=== PATIENT | male | born 1995 | race Caucasian/White ===

== ENCOUNTER 2022-09-06 16:54 | Emergency (ER) | payer SELFPAY ==
[2022-09-06 16:55] VITALS: BP 138/74; PULSE 69; RESP 16; TEMP 36.6; O2SAT 97; BMI 19.1
--- NOTE | 2022-09-06 17:59 | EDS_ITS ---
HPI History of Present Illness Chief Complaint: Cold Sx Informant: patient Onset/Context/Timing Onset: Weeks (3) Context: Gradual Onset Timing: Continuous and Waxes and wanes Quality: Lightheaded Location: Generalized Worsened by: Nothing Relieved by: Nothing Narrative Narrative: Patient presents with cough and congestion that has been getting worse over the past 3 weeks. Patient states she has been having some hemoptysis over the past 3 weeks. Patient states it has been waxing and waning. Patient states that over the last week he has been starting to feel more lightheaded and dizzy. Patient states he has had some nausea, vomiting, and diarrhea. Patient admits to some shortness of breath. Patient states he also has some pain in his chest with coughing. Patient states he is coughing up some yellow sputum as well as the hemoptysis. Patient also admits to headache and rhinorrhea. Patient admits to some subjective chills but denies any fevers. PFSH PFSH Medical History no medical history no medical history Home Medications sertraline 50 mg tablet 75 mg 09/06/22 [History Last Taken Unknown] Allergy/AdvReac Type Severity Reaction Status Date / Time Sulfa (Sulfonamide Allergy Angioedema Verified 09/06/22 16:57 Antibiotics) Surgical History (Updated 09/06/22 @ 18:[address] Tulio Norman DO) Hx of nasal septoplasty Hx of tonsillectomy Social History Smoking Status: Unknown if ever smoked ROS ROS ED Constitutional Constitutional ED: Reports chills and subjective; Denies fever(s) Eyes Eyes: Reports blurry vision; Denies diplopia ENT ENT ED: Reports rhinorrhea; Denies sore throat Cardiovascular Cardiovascular: Reports chest pain; Denies palpitations Respiratory/Chest Respiratory/Chest: Reports cough and dyspnea Gastrointestinal Gastrointestinal: Reports diarrhea, nausea and vomiting Genitourinary Genitourinary ED: Denies dysuria or hematuria Musculoskeletal Musculoskeletal: Reports back pain and neck pain Integumentary Denies abscess or rash Neurologic Neurologic: Reports headache(s); Denies weakness Allergic/Immunologic Allergic/Immunologic ED: Denies mouth swelling or urticaria EXAM Physical Exam Const Vital Signs: 09/06/22 16:55 09/06/22 17:29 09/06/22 17:53 Temperature 97.8 F Temperature Source Temporal Pulse Rate 69 Respiratory Rate 16 Respiratory Effort Normal Non-Labored Normal Non-Labored Respiratory Pattern Normal Blood Pressure 138/74 H Blood Pressure Mean 95 Pulse Ox 97 Oxygen Delivery Method Room Air Positive well nourished and well developed General Appearance ED: well developed and NAD HEENT Reports moist mucous membranes Neck supple and no JVD Resp normal respiratory effort and clear to auscultation bilaterally Cardio regular rate, regular rhythm and no murmurs GI normal to inspection, nondistended, normoactive bowel sounds and non-tender Palpation: soft Extremity normal to inspection General Extremety ED: Negative for edema or tenderness General Extremity: Negative for edema Neuro oriented x3, CN's II-XII intact bilaterally and no sensory deficits noted Sensorium / Orientation: alert Motor Exam: strength 5/5 throughout Psych mental status grossly normal Skin no rashes or lesions noted MDM MDM MDM Narrative Medical decision making narrative: Dear Merle includes pneumonia, COVID, influenza, viral bronchitis, viral gastroenteritis, electrolyte abnormality, dehydration, pulmonary embolism, and cardiac dysrhythmia. EKG will be obtained to assess for cardiac dysrhythmia and cardiac ischemia. CBC will be obtained to assess for leukocytosis and anemia. Basic metabolic profile will be obtained to assess for electrolyte abnormality and renal function. COVID-19 rapid antigen will be obtained to assess for COVID infection. Influenza A and influenza B antigens will be obtained to assess for influenza infection. Chest x-ray will be obtained to assess for pneumonia and pneumothorax. D-dimer will be obtained to assess for pulmonary embolism. Lab Data Lab results narrative: CBC was reviewed and was within normal limits. D-dimer was reviewed and was within normal limits. Basic metabolic profile was reviewed and was within normal limits. COVID-19 rapid antigen was reviewed and was negative. Influenza A and influenza B rapid antigens were reviewed and were negative. Labs: Laboratory Results - last 24 hr 09/06/22 09/06/22 09/06/22 18:18 18:18 18:18 WBC 8.5 RBC 5.17 Hgb 15.6 Hct 46.8 MCV 90.5 MCH 30.2 MCHC 33.3 RDW Std Deviation 41.9 RDW Coeff of Chasity 12.6 Plt Count 240 MPV 12.3 H Immature Gran % (Auto) 0.400 Neut % (Auto) 76.7 H Lymph % (Auto) 16.4 L [place] % (Auto) 5.1 Eos % (Auto) 0.9 Baso % (Auto) 0.5 Absolute Neuts (auto) 6.5 Absolute Lymphs (auto) 1.39 Nucleated RBC % 0 D-Dimer Quant (PE/DVT) < 0.27 L Sodium 140 Potassium 4.4 Chloride 106 Carbon Dioxide 26.0 Anion Gap 8 BUN 17 Creatinine 0.75 Estim Creat Clear Calc 124.91 Est GFR (MDRD) Af Amer 162 Est GFR (MDRD) Non-Af 134 BUN/Creatinine Ratio 22.6 H Glucose 111 H Calcium 9.6 Radiography Chest X-Ray - ED: 2 View, Read by ED Physician, Read by Radiologist, Normal and No Acute Disease Diagnostic Testing: Clinical Impression(s) from Imaging Studies Chest X-Ray 09/06/22 18:25 IMPRESSION: Normal x-ray examination of the chest. Electronically Signed: Anand Reina MD at 18:47 EST , PA and lateral chest x-ray was obtained. There are 2 views. On my independent interpretation, lung osullivan are clear. There is normal cardiac silhouette. Bony thorax is normal. There is no acute process noted. Radiologist also interpreted the x-ray and agrees. EKG Initial EKG: Attestation: I personally reviewed and interpreted this EKG as follows: Interpretation: Sinus Rhythm (65) and No Acute Injury Pattern Comments: EKG was obtained. On my independent interpretation, it showed a normal sinus rhythm with a rate of 65. MT interval, QRS interval, and QTc intervals were all normal. [place] was normal. There are no acute ST or T wave changes. Prior EKG tracings: not available for review Prior: No Prior Treatment and Re-Evaluation Narrative: Patient was given IV fluids. Patient is feeling better on reevaluation. Patient was advised of his findings. Patient was instructed to continue Tylenol and ibuprofen as needed for any aches or fevers. Patient was instructed to drink plenty of fluids. Patient was instructed to follow-up with his primary care physician in 5 to 7 days. Patient understood and was agreeable with the plan. All questions were answered. Discharge Plan Triage Chief Complaint: Cold Sx ED Provider: Tulio Norman Dx/Rx/DC Orders Clinical Impression: Viral upper respiratory tract infection, Cough Instructions: ED URI, Viral, No Abx (Adult) Prescriptions: No Action sertraline 50 mg tablet 75 mg Label Comments: Take 1 and 1/2 tablets by mouth once daily. Stand Alone Forms: ED Work / School Excuse Primary Care Provider: Kelsi Mchugh IUSS ACOUSTIC ANALYST Referrals: Kelsi Mchugh IUSS ACOUSTIC ANALYST, IUSS ACOUSTIC ANALYST-C [Primary Care Provider] - 5-7 Days Disposition Disposition: Home, Self Care
--- NOTE | 2022-09-06 18:05 | EKG12_ITS ---
Test Reason : DYSRHYTHMIA Blood Pressure : / mmHG Vent. Rate : 065 BPM Atrial Rate : 065 BPM P-R Int : 168 ms QRS Dur : 092 ms QT Int : 376 ms P-R-T Axes : 069 058 067 degrees QTc Int : 391 ms Normal sinus rhythm with sinus arrhythmia Normal ECG Confirmed by ADAM FUCHS, KARINA ([id number]), staff editor NICOLÁS LEE ([id number]) on 09/07/2022 9:06:14 AM Referred By: ALMAZ Confirmed By:KARINA MEDINA MD
--- NOTE | 2022-09-06 18:14 | NURSING ---
NO OLD EKGS
[2022-09-06 18:25] LABS: Absolute Lymphocyte Count 1.39 X10^3/uL (0.83-4.51); Absolute Neutrophil Count 6.5 X10^3/uL (2.0-7.7); Basophil# 0.04 X10^3/uL; Basophil% 0.5 % (0-1); Eosinophil# 0.08 X10^3/uL; Eosinophils% 0.9 % (0-5); Hematocrit 46.8 % (40-54); Hemoglobin 15.6 g/dL (13.0-16.5); Lymphocyte # 1.39 X10^3/ul (0.83-4.51); Lymphocyte % 16.4 % (19-41); Mean Corp Hgb Conc 33.3 g/dL (32-36); Mean Corpuscular Hgb 30.2 pg (27.0-32.0); Mean Corpuscular Volume 90.5 fL (80-94); Mean Platelet Vol. 12.3 fl (6.2-12.0); Monocyte# 0.43 X10^3/uL; Monocyte% 5.1 % (0-10); NRBC Flagged by Analyzer 0 % (0-5); Neutrophil # 6.51 X10^3/uL (2.7-7.7); Neutrophil % 76.7 % (47-70); Platelet Count 240 K/mm3 (150-450); RBC Distribution Width CV 12.6 % (11.6-14.6); RBC Distribution Width SD 41.9 fl (35.1-43.9); Red Blood Count 5.17 M/mm3 (4.6-6.2); White Blood Count 8.5 K/mm3 (4.4-11.0)
--- NOTE | 2022-09-06 18:25 | RAD_ITS ---
STUDY: X-RAY CHEST REASON FOR EXAM: Male, 27 years old. Cough TECHNIQUE: PA and lateral COMPARISON: None. FINDINGS: The lungs are clear and expanded. There is no demonstrated pleural abnormality. Normal size heart. Normal mediastinum and rossy. Normal visualized pulmonary arteries. Normal visualized aortic arch and descending thoracic aorta. Normal visualized thoracic spine. Normal visualized ribs, clavicles, and shoulders. There is no demonstrated abnormality of the visualized soft tissue structures of the upper abdomen. RAD/Chest PA and Lateral IMPRESSION: Normal x-ray examination of the chest. Electronically Signed: Anand Reina MD at 18:47 EST ,
[2022-09-06 18:38] LABS: Anion Gap 8 (5-15); BUN 17 mg/dL (7-18); BUN/Creat Ratio 22.6 RATIO (10-20); Calcium,Total 9.6 mg/dL (8.5-10.1); Chloride 106 mmol/L (98-107); Creatinine, Serum 0.75 mg/dL (0.70-1.30); EST Glomerular Filtration Rate 134 mL/min (>60); Est Glom Filt Rate - Afr Amer 162 mL/min (>60); Estimated Creatinine Clearance 124.91 ml/min; Glucose 111 mg/dL (74-106); Potassium 4.4 mmol/L (3.5-5.1); Sodium Level 140 mmol/L (136-145)
[2022-09-06] MEDS: 0.9% Normal Saline 1,000 ML 1000 ML IV (18:44)
[2022-09-06 18:46] LABS: D-Dimer Quantitative (DVT/PE) < 0.27 FEU/ug/m (0.27-0.49)
== END 2022-09-06 21:25 | disposition home or self-care (01) ==
PROVIDERS: Emergency Provider Emergency Medicine; PCP Nurse Practitioner Family; Visit Provider Emergency Medicine
DX: J06.9 Acute upper respiratory infection, unspecified (principal); R51.9 Headache, unspecified; Z20.822 Contact with and (suspected) exposure to COVID-19
CPT/HCPCS: 71046; 80048; 85025; 85379; 87428; 93005; 96360; 96361; 99284; J7030; A4216

== ENCOUNTER 2023-02-13 10:47 | Emergency (ER) | payer OTHER, SELFPAY ==
[2023-02-13 10:48] VITALS: BP 127/78; PULSE 51; RESP 22; TEMP 35.5; O2SAT 99
[2023-02-13 11:00] LABS: Absolute Lymphocyte Count 1.74 X10^3/uL (0.83-4.51); Absolute Neutrophil Count 8.2 X10^3/uL (2.0-7.7); Basophil# 0.05 X10^3/uL; Basophil% 0.5 % (0-1); Eosinophil# 0.17 X10^3/uL; Eosinophils% 1.6 % (0-5); Hematocrit 45.9 % (40-54); Hemoglobin 15.2 g/dL (13.0-16.5); Lymphocyte # 1.74 X10^3/ul (0.83-4.51); Lymphocyte % 16.2 % (19-41); Mean Corp Hgb Conc 33.1 g/dL (32-36); Mean Corpuscular Hgb 29.6 pg (27.0-32.0); Mean Corpuscular Volume 89.5 fL (80-94); Mean Platelet Vol. 12.3 fl (6.2-12.0); Monocyte# 0.55 X10^3/uL; Monocyte% 5.1 % (0-10); NRBC Flagged by Analyzer 0 % (0-5); Neutrophil # 8.19 X10^3/uL (2.7-7.7); Neutrophil % 76.2 % (47-70); Platelet Count 244 K/mm3 (150-450); RBC Distribution Width CV 12.4 % (11.6-14.6); RBC Distribution Width SD 40.6 fl (35.1-43.9); Red Blood Count 5.13 M/mm3 (4.6-6.2); White Blood Count 10.7 K/mm3 (4.4-11.0)
[2023-02-13 11:14] LABS: Mucous, Urine 0 SEEN /hpf (<or=2+); Squamous Epithelial Cells - UA 0 SEEN /hpf (0-5)
[2023-02-13 11:19] LABS: Color, Urine Yellow (Yellow); Glucose, Dipstick Normal (Normal); Ketone-Dipstick 5 mg/dl (Negative); Leukocyte Esterase-Dipstick 25 /ul (Negative); Nitrite-Dipstick Negative (Negative); Occult Blood-Urine 250 /ul (Negative); Protein-Dipstick 30 mg/dl (Negative); Urine Bilirubin Dipstick Negative (Negative); Urine Clarity Clear (Clear); Urine Urobilinogen 1 mg/dl (Normal)
[2023-02-13 11:23] LABS: ALB/GLOB Ratio 1.2 RATIO (0.9-2.4); AST(SGOT) 16 U/L (15-37); Alanine Aminotransfer ALT/SGPT 18 U/L (16-61); Albumin, Serum 4.1 g/dL (3.2-5.0); Alkaline Phosphatase 64 U/L (45-117); Anion Gap 2 (5-15); BUN 8 mg/dL (7-18); BUN/Creat Ratio 7.9 RATIO (10-20); Calcium,Total 9.1 mg/dL (8.5-10.1); Chloride 108 mmol/L (98-107); Creatinine, Serum 1.01 mg/dL (0.70-1.30); EST Glomerular Filtration Rate 95 mL/min (>60); Est Glom Filt Rate - Afr Amer 115 mL/min (>60); Globulin 3.3 g/dL (2.2-4.2); Glucose 148 mg/dL (74-106); Potassium 4.3 mmol/L (3.5-5.1); Protein, Total 7.4 g/dL (6.4-8.2); Sodium Level 139 mmol/L (136-145)
[2023-02-13 11:30] LABS: Bacteria 1+ /hpf (None Seen); Red Blood Cells-Urine > 100 SEEN /hpf (0-5); White Blood Cells 0-5 SEEN /hpf (0-5)
--- NOTE | 2023-02-13 12:08 | CT_ITS ---
STUDY: CT ABDOMEN AND PELVIS WITHOUT CONTRAST REASON FOR EXAM: Male, 27 years old. Right flank pain. Hematuria. RADIATION DOSAGE (If Supplied By Facility): CTDIvol = ( 6.15 ) mGy, DLP = ( 310.33 ) mGycm TECHNIQUE: Transaxial images were obtained from the dome of the diaphragm to the symphysis pubis without oral contrast, and without intravenous contrast. Sagittal and coronal images were reconstructed. Individualized dose optimization techniques were used for this CT. COMPARISON: None. FINDINGS: Tiny partially calcified granuloma seen in the posterior medial segment of the left lower lobe. The visualized portions of the heart are within normal limits. Normal liver. Normal gallbladder and extrahepatic biliary system. Normal spleen. Normal pancreas. Normal bilateral adrenal glands. Minimally dilated right ureter. Normal left kidney. Normal visualized stomach. Normal small intestine. Normal colon. The appendix is visualized and appears normal. Normal abdominal aorta. Normal inferior vena cava. Normal retroperitoneum. There is a 3.8 mm calculus at the base of the bladder in the midline posteriorly. This most likely represents a recently passed calculus. Normal abdominal wall. Normal osseous structures. CT/Abdomen/Pelvis without Cont IMPRESSION: A 3.8 mm calculus is seen at the base of the bladder in the midline posteriorly suggestive of recently passed right ureteral calculus. Electronically Signed: Rafael Ayoub MD at 12:37 EDT ,
[2023-02-13 13:26] VITALS: BMI 23.2
--- NOTE | 2023-02-13 13:27 | EDS_ITS ---
HPI History of Present Illness Chief Complaint: Flank Pain Narrative Narrative: 27-year-old male with right flank pain. Started 1 hour prior to arrival. Patient with dysuria. He states the pain radiates to the inguinal region. He has had nausea and vomiting. He has trouble finding position of comfort. No history of kidney stones. He states he was given something by the EMS and he feels better now and does not need anything for pain. [facility] Medical History Asthma Concentration deficit Drug abuse History of emotional problems PTSD (post-traumatic stress disorder) Home Medications guanfacine 1 mg tablet,extended release 24 hr 1 mg PO DAILY #30 tabs 01/03/23 [Rx Last Taken Unknown] lamotrigine 25 mg tablet See Rx Instructions PO .COMPLEX #98 tabs 01/03/23 [Rx Last Taken Unknown] mirtazapine 15 mg tablet 15 mg PO QHS #30 tabs 01/03/23 [Rx Last Taken Unknown] hydrocodone-acetaminophen 5-325mg 5mg-325mg 1 tab PO Q6H PRN pain 3 days #10 TABLETS 02/13/23 [Rx Last Taken Unknown] ondansetron 4 mg disintegrating tablet 4 mg PO Q8H PRN PRN Nausea #10 tabs 02/13/23 [Rx Last Taken Unknown] Allergy/AdvReac Type Severity Reaction Status Date / Time Sulfa (Sulfonamide Allergy Angioedema Verified 02/13/23 10:48 Antibiotics) Family History Other Alcoholism Depression Suicide attempt Surgical History Hx of nasal septoplasty Hx of tonsillectomy Social History Smoking Status: Current every day smoker tobacco type: cigarettes alcohol intake: current details: few beers a week substance use type: other details: medical marijuana card ROS ROS ED Constitutional Constitutional ED: Denies chills, fever(s) or sweats Eyes Eyes: Denies blurry vision or change in vision ENT ENT ED: Denies ear pain or sore throat Cardiovascular Cardiovascular: Denies chest pain, palpitations or racing heartbeat Respiratory/Chest Respiratory/Chest: Denies cough, dyspnea or sputum Gastrointestinal Gastrointestinal: Reports abdominal pain, nausea and vomiting; Denies constipation or diarrhea Genitourinary Genitourinary ED: Denies dysuria, hematuria or urinary frequency Musculoskeletal Musculoskeletal: Reports back pain; Denies arthralgias or neck pain Integumentary Denies abscess, Abrasions or rash Neurologic Neurologic: Denies headache(s), paresthesias or weakness Psychiatric Psychiatric: Denies anxiety, depression, suicidal ideation or suicidal thoughts Endocrine Endocrinology: Denies polydipsia or polyuria EXAM Physical Exam Const Vital Signs: 02/13/23 10:48 Temperature 96 F L Temperature Source Temporal Pulse Rate 51 L Respiratory Rate 22 H Blood Pressure 127/78 H Blood Pressure Mean 94 Pulse Ox 99 Oxygen Delivery Method Room Air MDM MDM MDM Narrative Medical decision making narrative: With left flank pain. It was acute in onset. Differential includes kidney stone, pyelonephritis, appendicitis, constipation, dehydration, electrolyte anomalies. CBC to assess white blood cell count, hemoglobin, platelets, differential. MP to assess liver function, renal function, electrolytes. Urinalysis to assess for UTI. Patient not require medication as he had already been medicated by EMS. Urinalysis shows occult blood without evidence of infection. CBC and CMP are unremarkable. CT of abdomen pelvis was obtained without contrast which shows a 3.8 mm stone in the bladder which will likely pass on its own. Discussed with the patient he was amenable to discharge home. He was given Welcome and Zofran. Follow-up with urology. Return precautions discussed. Impression: 1. 3.8 mm bladder calculus 2. Hematuria 3. Nausea/vomiting Lab Data Labs: Laboratory Results - last 24 hr 02/13/23 02/13/23 10:41 11:10 WBC 10.7 RBC 5.13 Hgb 15.2 Hct 45.9 MCV 89.5 MCH 29.6 MCHC 33.1 RDW Std Deviation 40.6 RDW Coeff of Chasity 12.4 Plt Count 244 MPV 12.3 H Immature Gran % (Auto) 0.400 Neut % (Auto) 76.2 H Lymph % (Auto) 16.2 L [place] % (Auto) 5.1 Eos % (Auto) 1.6 Baso % (Auto) 0.5 Absolute Neuts (auto) 8.2 H Absolute Lymphs (auto) 1.74 Nucleated RBC % 0 Sodium 139 Potassium 4.3 Chloride 108 H Carbon Dioxide 29.0 Anion Gap 2 L BUN 8 Creatinine 1.01 Est GFR (MDRD) Af Amer 115 Est GFR (MDRD) Non-Af 95 BUN/Creatinine Ratio 7.9 L Glucose 148 H Calcium 9.1 Total Bilirubin 0.40 AST 16 ALT 18 Alkaline Phosphatase 64 Total Protein 7.4 Albumin 4.1 Globulin 3.3 Albumin/Globulin Ratio 1.2 Urine Color Yellow Urine Clarity Clear Urine pH 6.0 Ur Specific [place] 1.020 Urine Protein 30 H Urine Glucose (UA) Normal Urine Ketones 5 H Urine Occult Blood 250 H Urine Nitrite Negative Urine Bilirubin Negative Urine Urobilinogen 1 H Ur Leukocyte Esterase 25 H Urine RBC > 100 SEEN Urine WBC 0-5 SEEN Ur Squamous Epith Cells 0 SEEN Urine Bacteria 1+ Urine Mucus 0 SEEN Radiography Diagnostic Testing: Clinical Impression(s) from Imaging Studies Abdomen/Pelvis CT 02/13/23 12:08 IMPRESSION: A 3.8 mm calculus is seen at the base of the bladder in the midline posteriorly suggestive of recently passed right ureteral calculus. Electronically Signed: Rafael Ayoub MD at 12:37 EDT Reading Location ID and State: [address] [place] [address] , Service support , Discharge Plan Triage Chief Complaint: Flank Pain ED Provider: Hebert Solorzano Dx/Rx/DC Orders Instructions: ED Kidney Stone w/ Colic Prescriptions: New hydrocodone-acetaminophen 5-325 mg tablet 1 tab PO Q6H PRN (Reason: pain) 3 Days Qty: 10 0RF ondansetron 4 mg tablet,disintegrating 4 mg PO Q8H PRN PRN (Reason: Nausea) Qty: 10 0RF No Action mirtazapine 15 mg tablet 15 mg PO QHS Qty: 30 2RF lamotrigine 25 mg tablet See Rx Instructions PO .COMPLEX Qty: 98 0RF Rx Instructions: 25 mg orally for 14 days, then 50 mg orally for 14 days then 100 mg daily guanfacine 1 mg tablet extended release 24 hr 1 mg PO DAILY Qty: 30 2RF Primary Care Provider: Kelsi Mchugh NP Referrals: Kelsi Mchugh NP, DIRECT CASTING OPERATOR-C [Primary Care Provider] - Disposition Disposition: Home, Self Care
[2023-02-13 13:29] VITALS: PULSE 78; RESP 18; O2SAT 99
== END 2023-02-13 13:30 | disposition home or self-care (01) ==
PROVIDERS: Emergency Provider Student in an Organized Health Care Education/Training Program; PCP Nurse Practitioner Family; Visit Provider Student in an Organized Health Care Education/Training Program
DX: N21.0 Calculus in bladder (principal); R11.2 Nausea with vomiting, unspecified; R31.9 Hematuria, unspecified; R30.0 Dysuria; J45.909 Unspecified asthma, uncomplicated; Z79.899 Other long term (current) drug therapy; F17.210 Nicotine dependence, cigarettes, uncomplicated
CPT/HCPCS: 74176; 80053; 81001; 85025; 99284